=== PATIENT | male | born 1945 | race Caucasian/White ===

== ENCOUNTER 2019-12-28 21:07 | Observation (INO) ==
[2019-12-28 21:46] LABS: Hemoglobin 10.6 g/dL (14.0-18.0); Mean Corpuscular Hemoglobin 28.9 pg (25-34); Mean Corpuscular Hgb Conc 32.1 g/dL (32-36); Mean Corpuscular Volume 89.9 fL (80-100); Mean Platelet Volume 9.9 fL (7.4-10.4); Platelet Count 614 K/uL (130-400); RDW Coefficient of Variation 16.5 % (11.5-14.5); RDW Standard Deviation 53.8 fL (36.4-46.3); Red Blood Count 3.67 M/uL (4.7-6.1); White Blood Count 7.86 K/uL (4.8-10.8)
[2019-12-28 21:53] LABS: Albumin Level 2.9 gm/dl (3.4-5.0); BUN Creatinine Ratio 13.4 (10-20); Calcium 8.5 mg/dl (8.5-10.1); Creatinine Clr Calc Pharmacy 79.9 ml/min; Est GFR (African American) 96.3; Est GFR (Non-African American) 83.1; Magnesium 2.1 mg/dl (1.8-2.4); Potassium 3.7 mmol/L (3.5-5.1)
[2019-12-28 21:56] LABS: Albumin Globulin Ratio 0.8 (0.9-2); Bilirubin,Total 0.4 mg/dl (0.2-1); Globulin 3.7 gm/dl (2.5-4.0); Total Protein 6.6 gm/dl (6.4-8.2)
[2019-12-28 21:58] LABS: Partial Thromboplastin Ratio 0.9; Partial Thromboplastin Time 25.2 Seconds (21.0-31.0); Prothrombin Time 10.4 Seconds (9.0-12.0)
[2019-12-28 22:03] LABS: Basophils # (auto) 0.07 K/uL (0-0.2); Basophils % (auto) 0.9 %; Eosinophils % (auto) 2.6 %; Immature Granulocytes # (auto) 0.01 K/uL (0.00-0.02); Immature Granulocytes % (auto) 0.1 %; Lymphocytes # (auto) 1.49 K/uL (1.2-3.4); Lymphocytes % (auto) 19.1 %; Monocytes # (auto) 1.42 K/uL (0.11-0.59); Monocytes % (auto) 18.2 %; Neutrophils # (auto) 4.63 K/uL (1.4-6.5); Neutrophils % (auto) 59.1 %
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
[2019-12-28] MEDS ORDERED: OPTIRAY 320 125ml IV ONE (22:14)
[2019-12-28 22:27] LABS: Thyroid Stimulating Hormone 22.6 uIu/ml (0.300-4.500)
[2019-12-28 22:39] LABS: T4 Free Thyroxine 1.01 ng/dl (0.8-1.6)
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
[2019-12-29] MEDS ORDERED: ACETAMINOPHEN 325 MG TAB PO PRN (03:50)
[2019-12-29] MEDS ORDERED: LEVOTHYROXINE SODIUM 125 MCG TABLET PO SCH (06:30)
[2019-12-29 06:35] LABS: Estimated Average Glucose 114 mg/dl; Hemoglobin A1C 5.6 % (4.5-5.6)
[2019-12-29 06:46] LABS: Appearance Urine Clear (Clear); Bilirubin Urine Negative (Negative); Blood Urine Negative (Negative); Color Urine Yellow; Glucose Urine UA Negative (Negative); Ketones Urine Negative (Negative); Leukocyte Esterase Urine Negative (Negative); Nitrite Urine Negative (Negative); Protein Urine Negative (Negative); Specific Gravity Urine 1.037 (1.000-1.030); Urobilinogen Urine Negative (Negative); pH Urine 5.5 (4.5-7.5)
[2019-12-29 06:48] LABS: Chol HDL Ratio 3; Cholesterol 160 mg/dl (0-200); HDL Cholesterol 49 mg/dl; LDL Cholesterol Calculated 90 mg/dl; Triglycerides 104 mg/dl (0-150); VLDL Cholesterol 21 mg/dl
--- NOTE | 2019-12-29 07:23 | CT Scan Report ---
CT head/brain wo con CLINICAL HISTORY: Transient ischemic attack COMPARISON STUDY: No previous studies for comparison. TECHNIQUE: Axial CT of the brain is performed from the vertex to the skull base. IV contrast was not administered for this examination. A dose lowering technique was utilized adhering to the principles of ALARA. CT DOSE: FINDINGS: No intra or extra-axial mass lesions are visualized. There is no CT evidence of acute cortical infarc tion. There is no evidence of midline shift. There is no acute hemorrhage. No calvarial fractures ar e visualized. There are minor white matter hypodensities likely on a small vessel basis. There is ventricular dilatation, apical portion to the degree of sulcal enlargement. Clinical correla tion regards to signs or symptoms of normal pressure hydrocephalus is recommended. There is no evidence of acute sinusitis IMPRESSION: 1. Ventriculomegaly, out of proportion to the degree of sulcal enlargement. Clinical correlation in r egards to symptoms of normal pressure hydrocephalus is recommended. 2. No acute intracranial findings. ACT 112: Negative or not required by law. Electronically signed by: oTo Wells M.D. 12/29/2019 7:21 AM
--- NOTE | 2019-12-29 07:31 | XRay Report ---
XR chest 1V portable CLINICAL HISTORY: stroke alert COMPARISON STUDY: No previous studies for comparison. FINDINGS: There is mild elevation of the right hemidiaphragm. There is no pneumothorax or pleural eff usion. Mild right basilar opacity is present. There is moderate cardiomegaly is no evidence for pulmo nary edema. IMPRESSION: 1. Mild right basilar opacity which favors atelectasis. 2. Mild elevation of the right hemidiaphragm. 3. Cardiomegaly without evidence for pulmonary edema. ACT 112: Negative or not required by law. Electronically signed by: Tom Sharma M.D. 12/29/2019 7:30 AM
--- NOTE | 2019-12-29 08:12 | CT Scan Report ---
CTA ANGIOGRAPHY OF THE HEAD CLINICAL HISTORY: TIA symptoms COMPARISON STUDY: No previous studies for comparison. TECHNIQUE: Helical axial images of the head were obtained following uneventful intravenous administr ation of 118 cc of Optiray 320. Sagittal and coronal reconstructions were viewed as well as maximal i ntensity projections on an independent 3-D workstation. Automated exposure control was utilized for the study. A dose lowering technique was utilized adhering to the principles of ALARA. FINDINGS: Please note that the head CT will be reported separately. No acute intracranial hemorrhage, midline shift or mass effect is present. Note is made of ventricular dilatation out of proportion to sulcal enlargement. The bilateral M1, M2, A1 and A2 segments are patent. There is no intracranial an eurysm. There is mild plaque within the intracranial vessels. No intraluminal thrombus is noted. Ther e is no central vessel occlusion. Posterior circulation is intact. There is persistence of the right posterior cerebral artery. IMPRESSION: No central vessel occlusion. Mild atherosclerotic plaque within the bilateral cavernous carotids. No significant stenosis. No intracranial aneurysm. ACT 112: Negative or not required by law. Electronically signed by: Tom Sharma M.D. 12/29/2019 8:11 AM
--- NOTE | 2019-12-29 08:14 | CT Scan Report ---
CT ANGIOGRAPHY OF THE NECK WITH CONTRAST CLINICAL HISTORY: TIA symptoms COMPARISON STUDY: No previous studies for comparison. Technique: CT angiography of the carotid and vertebral arteries was obtained using FlexScoreraSpecpage 320 IV and 3D reconstruction on an independent workstation. NASCET criteria was utilized. Automated exposure c ontrol was utilized for the study. A dose lowering technique was utilized adhering to the principles of ALARA. CT DOSE: 1300.53 mGy.cm Findings: Note is made of an indeterminate 1 cm solid right upper lobe nodule on image 62 of 447. The re are numerous segmental and subsegmental pulmonary emboli within visualized portions of the upper c hest. Central pulmonary arteries are dilated. There is no cervical lymphadenopathy. There is no cervi dawood spine fracture. There is mild plaque within the proximal bilateral internal carotid arteries with out stenosis. No dissection within the major vessels within neck is noted. There is no intraluminal t hrombus. IMPRESSION: 1. Mild plaque within the proximal bilateral internal carotid arteries. No stenosis. No dissection wi thin the neck. 2. Multiple bilateral segmental and subsegmental pulmonary emboli within visualized portions of the c hest. Discussed with Emelina Rice at time of dictation. Mild dilatation of the central pulmonary ar teries 3. Indeterminate 1 cm right upper lobe pulmonary nodule. A follow-up nonemergent chest CT is recommen ded. ACT 112: Negative or not required by law. Electronically signed by: Tom Sharma M.D. 12/29/2019 8:13 AM
[2019-12-29] MEDS: PANTOprazole 40 MG TAB PO SCH (08:34)
[2019-12-29] MEDS: allopurinoL 100 MG TAB PO SCH (08:34)
[2019-12-29] MEDS: BACITRACIN OINT 15 GM TUBE TOP SCH ×2 (08:35→20:45)
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
--- NOTE | 2019-12-29 09:54 | Ultrasound Report ---
US venous doppler LE BI CLINICAL HISTORY: Right calf pain. PULMONARY EMBOLISM. COMPARISON STUDY: No previous studies for comparison. FINDINGS: Grayscale, color-flow, and Doppler spectral waveform analysis was performed. No thrombus is visualized in the common femoral or superficial femoral veins. The popliteal vein was noncompressible measuring 6 mm in diameter consistent with an occlusive DVT. Thrombus was also visual ized within one of 2 posterior tibial veins. The popliteal vein is duplicated. IMPRESSION: Acute right lower extremity DVT involving the popliteal vein and posterior pain. ACT 112: Negative or not required by law. Electronically signed by: Too Wells M.D. 12/29/2019 9:52 AM
--- NOTE | 2019-12-29 10:17 | Electrocardiogram Report ---
Test Reason : Blood Pressure : / mmHG Vent. Rate : 077 BPM Atrial Rate : 077 BPM P-R Int : 122 ms QRS Dur : 090 ms QT Int : 388 ms P-R-T Axes : 043 013 020 degrees QTc Int : 439 ms Sinus rhythm with occasional Premature ventricular complexes and Premature atrial complexes Otherwise normal ECG No previous ECGs available Confirmed by Kenny Chan ([id number]) on 12/29/2019 10:17:10 AM Referred By: REFERRED SELF Confirmed By:Kenny Chan
[2019-12-29] MEDS ORDERED: GADOBUTROL 65ML VIAL IV ONE (10:51)
[2019-12-29] MEDS ORDERED: OPTIRAY 320 125ml IV ONE (11:05)
--- NOTE | 2019-12-29 11:08 | Magnetic Resonance Report ---
MRI OF THE BRAIN WITHOUT AND WITH IV CONTRAST CLINICAL HISTORY: Difficulty speaking. Slurred speech. Right facial droop. Possible stroke. COMPARISON STUDY: Noncontrast head CT dated 12/28/2019 TECHNIQUE: MRI of the brain was performed from the vertex to the skull base utilizing various T1 and T2 weighted sequences. Following the IV administration of 8.5 mL of Gadavist contrast, additional enh anced images were obtained. FINDINGS: Sagittal T1, axial diffusion, proton density and T2 weighted axial, coronal FLAIR, and pre and post a xial T1-weighted images were acquired. These were supplemented with post gadolinium coronal T1 weight ed images. No intra or extra-axial mass lesions are visualized. Axial diffusion-weighted images reveal no evidence of acute or subacute infarction. There is ventricular dilatation, out of proportion to the degree of atrophy. Clinical correlation in regards to signs or symptoms of normal pressure hydrocephalus is recommended. Proton density T2-weighted and FLAIR images reveal scattered foci of increased T2 signal within the w jose matter, likely on a small vessel basis. There are no abnormal flow voids. There is no evidence of pathologic enhancement. There are minor foci of increased T2 signal within the mastoid likely inflammatory IMPRESSION: 1. No evidence of intracranial mass 2. No evidence of acute or subacute infarction 3. Ventricular dilatation out of proportion to the degree of atrophy. ACT 112: Negative or not required by law. Electronically signed by: Too Wells M.D. 12/29/2019 11:07 AM
--- NOTE | 2019-12-29 11:19 | CT Scan Report ---
CT ANGIOGRAM OF THE CHEST CLINICAL HISTORY: Abnormal CT angiography the neck. Possible pulmonary embolism. COMPARISON STUDY: Chest x-ray dated 12/28/2019, CT angiography the neck dated 12/28/2019 TECHNIQUE: Following the IV administration of 120 mL of Optiray-320, CT angiogram of the thorax was p erformed from the thoracic inlet to the lung bases utilizing the pulmonary embolus protocol. Images a re reviewed in the axial, sagittal, and coronal planes. IV contrast was administered without complica tion. MIP imaging was performed. A dose lowering technique was utilized adhering to the principles o f ALARA. CT DOSE: 525.68 mGy.cm FINDINGS: The upper abdomen, there is mild infiltration of mesenteric fat. There is a 16mm fluid collection adj acent to pancreatic tail. There is cholelithiasis. No pathologically enlarged axillary mediastinal or hilar lymph nodes were visualized. The ascending thoracic aorta measures 3.5 cm. There are multiple bilateral pulmonary artery filling defects involving all lobes. The findings are i ndicative of acute bilateral pulmonary embolism. There are no significant pleural effusions There is no lobar consolidation. There is scattered areas of parenchymal atelectasis. There is a solid 1 cm right upper lobe pulmonary nodule as visualized on images #[id number] IMPRESSION: 1. Acute bilateral pulmonary embolism 2. Solid 10 mm right upper lobe pulmonary nodule. Pulmonary consultation, and/or PET CT scan recommen ded in follow-up. 3. Bilateral atelectatic changes 4. Cholelithiasis. Distended gallbladder. 5. Infiltration of the fat surrounding the pancreatic tail. Small fluid collection adjacent to the pa ncreatic tail Please refer to below summary of Fleischner criteria recommendations for follow-up of incidental CT n odules (Liang Morrison, Guidelines for management of small pulmonary nodules detected on CT scans: A sta tement from the Fleischner Society, Radiology 237: [phone].) SOLID NODULES Solitary nodule size: <6 mm * low risk patients: no follow-up needed * high risk patients: optional CT at 12 months Solitary nodule size: 6-8 mm * low risk patients: follow-up at 6-12 months, then consider further follow-up at 18-24 months * high risk patients: initial follow-up CT at 6-12 months and then at 18-24 months if no change Solitary nodule size: >8 mm * either low or high risk patients - consider follow-up CT at 3 months, and/or CT-PET, and/or biopsy Multiple nodules size: <6 mm * low risk patients: no routine follow-up * high risk patients: optional CT at 12 months Multiple nodules size: 6-8 mm * low risk patients: follow-up at 3-6 months, then consider further follow-up at 18-24 months * high risk patients: follow-up at 3-6 months, then at 18-24 months if no change Multiple nodules size: >8 mm * low risk patients: follow-up at 3-6 months, then consider further follow-up at 18-24 months * high risk patients: follow-up at 3-6 months, then at 18-24 months if no change Note: newly detected indeterminate nodule in persons 35 years of age or older. * low risk patients: minimal or absent history of smoking and/or other known risk factors * high risk patients: history of smoking or of other known risk factors (e.g. first degree relative with lung cancer, or exposure to asbestos, radon, uranium) * if a nodule up to 8 mm is partly solid or is ground glass further follow-up is required after 24 m onths to exclude possible slow growing adenocarcinoma ([facility]ASKAR) SUBSOLID NODULES Solitary pure ground-glass nodule * nodule size <6 mm - no CT follow-up required * nodule size >=6 mm - follow-up CT at 6-12 months, then every 2 years until 5 years Solitary part-solid nodule * nodule size <6 mm - no CT follow-up required * nodule size >=6 mm - follow-up CT at 3-6 months. If unchanged, and solid component remains <6 mm, then annual follow-up for 5 years Multiple subsolid nodules * nodule size <6 mm - follow-up CT at 3-6 months, consider further follow-up at 2 and 4 years if sta ble * nodule size >=6 mm - follow-up CT at 3-6 months, subsequent management based on the most suspiciou s nodule(s) ACT 112: Negative or not required by law. Electronically signed by: Too Wells M.D. 12/29/2019 11:18 AM
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
[2019-12-29] MEDS ORDERED: HEPARIN IV BOLUS 6,000 UNITS in SYRINGE 0 ML IV ONE (12:45)
[2019-12-29] MEDS: HEPARIN SODIUM/DEXTROSE 25,000 UNITS/500 ML BAG IV SCH (13:49)
[2019-12-29 14:11] LABS: Basophils # (auto) 0.08 K/uL (0-0.2); Basophils % (auto) 1.3 %; Eosinophils # (auto) 0.14 K/uL (0-0.5); Eosinophils % (auto) 2.3 %; Hematocrit (blood only) 33.6 % (42-52); Hemoglobin 10.3 g/dL (14.0-18.0); Immature Granulocytes # (auto) 0.01 K/uL (0.00-0.02); Immature Granulocytes % (auto) 0.2 %; Lymphocytes # (auto) 0.89 K/uL (1.2-3.4); Lymphocytes % (auto) 14.4 %; Mean Corpuscular Hemoglobin 27.7 pg (25-34); Mean Corpuscular Volume 90.3 fL (80-100); Mean Platelet Volume 9.6 fL (7.4-10.4); Monocytes # (auto) 1.05 K/uL (0.11-0.59); Neutrophils % (auto) 64.8 %; Platelet Count 624 K/uL (130-400); RDW Coefficient of Variation 16.4 % (11.5-14.5); RDW Standard Deviation 54.1 fL (36.4-46.3); Red Blood Count 3.72 M/uL (4.7-6.1); White Blood Count 6.17 K/uL (4.8-10.8)
[2019-12-29 14:12] LABS: Mean Corpuscular Hgb Conc 30.7 g/dL (32-36)
[2019-12-29 14:28] LABS: Prothrombin Time 10.9 Seconds (9.0-12.0)
[2019-12-29 20:30] LABS: Partial Thromboplastin Ratio 3.4
[2019-12-30 04:57] LABS: Basophils % (auto) 1.5 %; Eosinophils # (auto) 0.28 K/uL (0-0.5); Eosinophils % (auto) 4.1 %; Immature Granulocytes # (auto) 0.02 K/uL (0.00-0.02); Immature Granulocytes % (auto) 0.3 %; Lymphocytes # (auto) 1.09 K/uL (1.2-3.4); Lymphocytes % (auto) 16.1 %; Mean Corpuscular Hemoglobin 28.8 pg (25-34); Mean Corpuscular Hgb Conc 32.3 g/dL (32-36); Mean Corpuscular Volume 89.3 fL (80-100); Mean Platelet Volume 9.9 fL (7.4-10.4); Monocytes # (auto) 1.08 K/uL (0.11-0.59); Monocytes % (auto) 15.9 %; Neutrophils # (auto) 4.22 K/uL (1.4-6.5); Neutrophils % (auto) 62.1 %; Platelet Count 603 K/uL (130-400); RDW Coefficient of Variation 16.4 % (11.5-14.5); RDW Standard Deviation 53.3 fL (36.4-46.3); Red Blood Count 3.47 M/uL (4.7-6.1); White Blood Count 6.79 K/uL (4.8-10.8)
[2019-12-30 05:15] LABS: Partial Thromboplastin Ratio 2.7
[2019-12-30 05:50] LABS: BUN Creatinine Ratio 9.9 (10-20); Calcium 8.3 mg/dl (8.5-10.1); Creatinine Clr Calc Pharmacy 82.1 ml/min; Est GFR (African American) 101.1; Est GFR (Non-African American) 87.2; Potassium 3.5 mmol/L (3.5-5.1)
[2019-12-30 05:55] LABS: Ferritin 56.1 ng/ml (8-388); Partial Thromboplastin Time 74.5 Seconds (21.0-31.0)
[2019-12-30] MEDS ORDERED: LEVOTHYROXINE SODIUM 150 MCG TABLET PO SCH (06:30)
[2019-12-30] MEDS: PANTOprazole 40 MG TAB PO SCH (08:48)
[2019-12-30] MEDS: allopurinoL 100 MG TAB PO SCH (08:48)
[2019-12-30] MEDS: BACITRACIN OINT 15 GM TUBE TOP SCH (08:48)
[2019-12-30] MEDS ORDERED: DOCUSATE SODIUM 100 MG CAP PO SCH (09:15)
[2019-12-30 09:30] LABS: Folate (Folic Acid) 14.79 ng/ml (>5.38)
[2019-12-30] MEDS: HEPARIN SODIUM/DEXTROSE 25,000 UNITS/500 ML BAG IV SCH (10:49)
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
[2019-12-30 12:18] LABS: Partial Thromboplastin Ratio 2.3
[2019-12-30 12:23] LABS: Partial Thromboplastin Time 62.8 Seconds (21.0-31.0)
[2019-12-30] MEDS ORDERED: RIVAROXABAN 15 MG TAB PO SCH ×3 (13:00→21:00)
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
[2019-12-30] MEDS ORDERED: FERROUS SULFATE 325 MG TAB PO SCH (17:00)
== END 2019-12-30 14:47 | disposition home health service (06) ==
LOC: 2W 21:07 → ED 21:07 → SUATTDRO 12-29 01:17 → 2W 12-29 03:03